=== PATIENT | male | born 1955 | race Caucasian/White ===

== ENCOUNTER 2016-06-26 08:05 | Day surgery (SDC) | payer BC ==
--- NOTE | ~2016-06-26 | EGD ---
EGD REPORT [facility] [address] [place] [id number] NAME: MARIS FOSTER JR : 57 STATUS : [place] [facility] [place]#: [id number] AGE: 61 ADM/REG DATE : 06/26/16 MR#: [id number] REPORT SERV DATE: 06/26/16 DICTATED BY: YELENA SHELDON DATE: 06/26/16 REPORT STATUS : Draft TRANSCRIBED BY: [facility] DATE: 06/26/16 Endoscopy Center Patient Name: Maris Foster Date of : 1955 Attending MD: TRAVIS SHELDON MD Procedure Date No Time: 06/26/2016 Procedure: Colonoscopy Indications: High risk colon cancer surveillance: Personal history of colonic polyps, Last colonoscopy: December 2012 Referring MD: GLENN BELL MD Medicines: See the Anesthesia note for documentation of the administered medications Complications: No immediate complications. Estimated blood loss: None. Procedure: Pre-Anesthesia Assessment: - ASA Grade Assessment: III - A patient with severe systemic disease. - Prior to the procedure, a History and Physical was performed, and patient medications and allergies were reviewed. The patient's tolerance of previous anesthesia was also reviewed. The risks and benefits of the procedure and the sedation options and risks were discussed with the patient. All questions were answered, and informed consent was obtained. Prior Anticoagulants: The patient has taken aspirin, last dose was 2 days prior to procedure. After reviewing the risks and benefits, the patient was deemed in satisfactory condition to undergo the procedure. After I obtained informed consent, the scope was passed under direct vision. Throughout the procedure, the patient's blood pressure, pulse, and oxygen saturations were monitored continuously. The PCF [id number] was introduced through the anus and advanced to the cecum, identified by appendiceal orifice and ileocecal valve. The ileocecal valve, appendiceal orifice and rectum were photographed. The entire colon was examined. The colonoscopy was performed without difficulty. The patient tolerated the procedure well. The quality of the bowel preparation was adequate. Findings: The perianal and digital rectal examinations were normal. Multiple small and large-mouthed diverticula were found in the entire colon. Non-bleeding internal hemorrhoids were found during retroflexion and were Grade I (internal hemorrhoids that do not prolapse). EGD REPORT [place] [id number] [facility] [place]. [address] NAME: MARIS FOSTER JR : 57 STATUS : REG [facility]#: [id number] AGE: 61 ADM/REG DATE : 06/26/16 MR#: [id number] REPORT SERV DATE: 06/26/16 DICTATED BY: YELENA SHELDON DATE: 06/26/16 REPORT STATUS : Draft TRANSCRIBED BY: [facility] DATE: 06/26/16 No other significant abnormalities were identified in a careful examination of the remainder of the colon. Impression: - Diverticulosis in the entire examined colon. - Non-bleeding internal hemorrhoids. Recommendation: - Patient has a contact number available for emergencies. The signs and symptoms of potential delayed complications were discussed with the patient. Return to normal activities tomorrow. Written discharge instructions were provided to the patient. - High fiber diet indefinitely. - Discharge patient to home. - Continue present medications. - Repeat colonoscopy in 5 years for surveillance. Procedure Code(s): --- Professional --- 43881, Colonoscopy, flexible, proximal to splenic flexure; diagnostic, with or without collection of specimen(s) by brushing or washing, with or without colon decompression (separate procedure) Diagnosis Code(s): --- Professional --- K64.0, First degree hemorrhoids K57.30, Diverticulosis of large intestine without perforation or abscess without bleeding Z86.010, Personal history of colonic polyps CPT copyright 2013 [employer]. All rights reserved. The codes documented in this report are preliminary and upon remote medical coder review may be revised to meet current compliance requirements. TRAVIS SHELDON MD 06/26/2016 9:26 AM This report has been signed electronically. Number of Addenda: 0 Note Initiated On: 06/26/2016 8:43 AM Scope Withdrawal Time 0 hours 7 minutes 27 seconds [address] [place] [address]
[~2016-06-26 08:05] MED LIST: ASAB PO; AVAPRO300 MG PO; COZAAR100 MG PO; GLUCPH8 PO; LEVSINTAB PO; MULTIPLE VIT PO; NEXIUM20 M1 PO; NORCO1 TA1 PO; NORV10 PO; OCUVITE PO; PERCOCET1 TA4 PO; TRAZ100 PO; V5; VOLT25 PO; [UNRECOGNIZED DRUG - OTHER] PO
== END 2016-06-26 23:59 | disposition home health service (06) ==
LOC: DMU 08:05
PROVIDERS: Internal Medicine Gastroenterology
PROC: 0DJD8ZZ Inspection of Lower Intestinal Tract, Via Natural or Artificial Opening Endoscopic (ICD-10-PCS; principal; 2016-06-26 09:30)
DX: Z12.11 Encounter for screening for malignant neoplasm of colon (principal); K64.0 First degree hemorrhoids; K57.30 Diverticulosis of large intestine without perforation or abscess without bleeding; I10 Essential (primary) hypertension; G47.33 Obstructive sleep apnea (adult) (pediatric); K21.9 Gastro-esophageal reflux disease without esophagitis; E11.9 Type 2 diabetes mellitus without complications; E66.01 Morbid (severe) obesity due to excess calories; Z68.41 Body mass index [BMI] 40.0-44.9, adult; Z87.891 Personal history of nicotine dependence; Z86.010 Personal history of colon polyps; Z90.49 Acquired absence of other specified parts of digestive tract
CPT/HCPCS: 82962